=== PATIENT | male | born 1980 | race Caucasian/White ===

== ENCOUNTER 2019-06-22 13:57 | Emergency (ER) | payer BC, SELFPAY ==
[2019-06-22] MEDS ORDERED: FENTANYL CITR 100 MCG/2 ML ONE (14:38)
--- NOTE | 2019-06-22 15:02 | RAD REPORT ---
EXAM DESCRIPTION: US - Scrotum Testicles - 06/22/2019 2:44 pm CLINICAL HISTORY: left testicle pain COMPARISON: No comparisons FINDINGS: The right testicle 4.7 x 3.3 x 2.6 cm. No intratesticular masses or evidence of testicular torsion. The left testicle 5.0 x 3.4 x 3.0 cm. No intratesticular masses or evidence of testicular torsion. Left epididymis is enlarged with increased blood flow. Mild left scrotal fluid. IMPRESSION: Left epididymitis.
--- NOTE | 2019-06-22 15:46 | EDPHYS ---
Physician Documentation [facility] Name: Venkata Simms Age: 38 yrs Sex: Male : 1980 Arrival Date: 06/22/2019 Time: 13:58 Bed 19 Private MD: ED Physician Curtis Delacruz HPI: 06/21 14:29 This 38 yrs old Male presents to ER via Ambulatory with complaints of snw Testicular Swelling. 14:29 The patient presents with tenderness, that is severe, left testicular pain. Onset: The snw symptoms/episode began/occurred suddenly, 3 day(s) ago, and became persistent. Associated signs and symptoms: The patient has no apparent associated signs or symptoms. Severity of symptoms: At their worst the symptoms were severe. The patient has not experienced similar symptoms in the past. The patient has not recently seen a physician. denies heavy lifting, denies unprotected intercourse. Historical: - Allergies: 14:08 No Known Allergies; ca1 - Home Meds: 14:08 None [Active]; ca1 - PMHx: 14:08 None; ca1 - PSHx: 14:08 None; ca1 - Immunization history:: Adult Immunizations up to date. - Social history:: Smoking status: Patient reports the use of cigarette tobacco products, smokes one pack cigarettes per day. ROS: 14:27 Constitutional: Negative for fever, chills, and weight loss, Eyes: Negative for injury, snw pain, redness, and discharge, ENT: Negative for injury, pain, and discharge, Neck: Negative for injury, pain, and swelling, Cardiovascular: Negative for chest pain, palpitations, and edema, Respiratory: Negative for shortness of breath, cough, wheezing, and pleuritic chest pain, Abdomen/GI: Negative for abdominal pain, nausea, vomiting, diarrhea, and constipation, Back: Negative for injury and pain, MS/Extremity: Negative for injury and deformity, Skin: Negative for injury, rash, and discoloration, Neuro: Negative for headache, weakness, numbness, tingling, and seizure. 14:27 : Positive for testicular pain Exam: 14:27 Constitutional: This is a well developed, well nourished patient who is awake, alert, snw and in no acute distress. Head/Face: Normocephalic, atraumatic. Eyes: Pupils equal round and reactive to light, extra-ocular motions intact. Lids and lashes normal. Conjunctiva and sclera are non-icteric and not injected. Cornea within normal limits. Periorbital areas with no swelling, redness, or edema. ENT: Nares patent. No nasal discharge, no septal abnormalities noted. Tympanic membranes are normal and external auditory canals are clear. Oropharynx with no redness, swelling, or masses, exudates, or evidence of obstruction, uvula midline. Mucous membranes moist. Neck: Trachea midline, no thyromegaly or masses palpated, and no cervical lymphadenopathy. Supple, full range of motion without nuchal rigidity, or vertebral point tenderness. No Meningismus. Chest/axilla: Normal chest wall appearance and motion. Nontender with no deformity. No lesions are appreciated. Cardiovascular: Regular rate and rhythm with a normal S1 and S2. No gallops, murmurs, or rubs. Normal PMI, no JVD. No pulse deficits. Respiratory: Lungs have equal breath sounds bilaterally, clear to auscultation and percussion. No rales, rhonchi or wheezes noted. No increased work of breathing, no retractions or nasal flaring. Abdomen/GI: Soft, non-tender, with normal bowel sounds. No distension or tympany. No guarding or rebound. No evidence of tenderness throughout. Back: No spinal tenderness. No costovertebral tenderness. Full range of motion. Skin: Warm, dry with normal turgor. Normal color with no rashes, no lesions, and no evidence of cellulitis. MS/ Extremity: Pulses equal, no cyanosis. Neurovascular intact. Full, normal range of motion. Neuro: Awake and alert, GCS 15, oriented to person, place, time, and situation. Cranial nerves II-XII grossly intact. Motor strength 5/5 in all extremities. Sensory grossly intact. Cerebellar exam normal. Normal gait. Psych: Awake, alert, with orientation to person, place and time. Behavior, mood, and affect are within normal limits. 14:27 : Male external genitalia: normal, Bladder: is normal, Sexual behavior: denies unprotected intercourse, left testicle exquisitely tender. Vital Signs: 14:06 BP 133 / 94; Pulse 88; Resp 17 S; Temp 98.1(O); Pulse Ox 96% on R/A; Weight 70.31 kg ca1 (R); Height 6 ft. 3 in. (190.50 cm); Pain 10/10; 15:21 BP 135 / 87; Pulse 88; Resp 16; Pulse Ox 96% ; bp 16:33 BP 140 / 96; Pulse 88; Resp 17; Pulse Ox 97% ; bp 14:06 Body Mass Index 19.37 (70.31 kg, 190.50 cm) ca1 MDM: 14:27 Patient medically screened. snw 15:46 Data reviewed: vital signs, nurses notes, radiologic studies, ultrasound. Data snw interpreted: Pulse oximetry: on room air is 96 %. Interpretation: acceptable. Counseling: I had a detailed discussion with the patient and/or guardian regarding: the historical points, exam findings, and any diagnostic results supporting the discharge/admit diagnosis, the presence of at least one elevated blood pressure reading (>120/80) during this emergency department visit, radiology results, the need for outpatient follow up, to return to the emergency department if symptoms worsen or persist or if there are any questions or concerns that arise at home. Special discussion: Based on the history and exam findings, there is no indication for further emergent testing or inpatient evaluation. I discussed with the patient/guardian the need to see the primary care provider for further evaluation of the symptoms. 06/21 14:27 Order name: US Scrotum Testicles; Complete Time: 15:23 snw Administered Medications: 14:45 Drug: fentaNYL (PF) 50 mcg Route: IM; Site: right deltoid; bp 15:22 Follow up: Response: Pain is decreased bp 15:45 Drug: Cipro 500 mg Route: PO; bp 16:24 Follow up: Response: No adverse reaction bp Disposition: 18:25 Co-signature as Attending Physician, Curtis Delacruz MD. rn Disposition: 06/22/19 15:45 Discharged to Home. Impression: Epididymitis. - Condition is Stable. - Discharge Instructions: Epididymitis. - Prescriptions for Cipro 500 mg Oral Tablet - take 1 tablet by ORAL route every 12 hours for 10 days; 20 tablet. - Medication Reconciliation Form, Thank You Letter, Antibiotic Education, Prescription Opioid Use form. - Follow up: Emergency Department; When: As needed; Reason: Worsening of condition. Follow up: Private Physician; When: 2 - 3 days; Reason: Recheck today's complaints, Continuance of care, Re-evaluation by your physician. - Problem is new. - Symptoms are unchanged. - Notes: Wear snug fitting underwear to keep scrotum lifted Signatures: Dispatcher [employer] EDMS Dominique Pittman, ARON-C MEDICAL OFFICE TECHNOLOGIST-Csnw Curtis Delacruz MD MD rn Peltier, Brian, RN RN bp Acob, Cyndee RN RN ca1 Corrections: (The following items were deleted from the chart) 16:39 15:45 06/22/2019 15:45 Discharged to Home. Impression: Epididymitis. Condition is bp Stable. Forms are Medication Reconciliation Form, Thank You Letter, Antibiotic Education, Prescription Opioid Use. Follow up: Emergency Department; When: As needed; Reason: Worsening of condition. Follow up: Private Physician; When: 2 - 3 days; Reason: Recheck today's complaints, Continuance of care, Re-evaluation by your physician. Problem is new. Symptoms are unchanged. snw
--- NOTE | 2019-06-22 15:46 | ER ---
Nurse's Notes [facility] Name: Venkata Simms Age: 38 yrs Sex: Male : 1980 Arrival Date: 06/22/2019 Time: 13:58 Bed 19 Private MD: Diagnosis: Epididymitis Presentation: 06/21 14:06 Chief complaint: Patient states: Swelling in the L testicle x 4 days. Reports pain on ca1 the L scrotum. Coronavirus screen: Proceed with normal triage. Patient denies a cough. Patient denies shortness of breath or difficulty breathing. Patient denies measured and/or subjective temperature greater than 100.4F prior to today's visit. Patient denies travel on a cruise ship or to a country the [facility] currently lists as an affected area. Patient denies contact with known and/or suspected case of COVID-19. Ebola Screen: Patient negative for fever greater than or equal to 101.5 degrees Fahrenheit, and additional compatible Ebola Virus Disease symptoms Patient denies exposure to infectious person. Patient denies travel to an Ebola-affected area in the 21 days before illness onset. No symptoms or risks identified at this time. Initial Sepsis Screen: Does the patient meet any 2 criteria? No. Patient's initial sepsis screen is negative. Does the patient have a suspected source of infection? No. Patient's initial sepsis screen is negative. Risk Assessment: Do you want to hurt yourself or someone else? Patient reports no desire to harm self or others. Onset of symptoms was June 22, 2019. 14:06 Method Of Arrival: Ambulatory ca1 14:06 Acuity: LEILANI 3 ca1 Triage Assessment: 14:10 General: Appears in no apparent distress. comfortable, Behavior is cooperative, bp appropriate for age, anxious. Pain: Complains of pain in groin. EENT: No deficits noted. Neuro: No deficits noted. Cardiovascular: No deficits noted. Respiratory: No deficits noted. GI: No signs and/or symptoms were reported involving the gastrointestinal system. : Reports LEFT TESTICULAR PAIN/SWELLING. Derm: No deficits noted. Musculoskeletal: No deficits noted. Historical: - Allergies: 14:08 No Known Allergies; ca1 - Home Meds: 14:08 None [Active]; ca1 - PMHx: 14:08 None; ca1 - PSHx: 14:08 None; ca1 - Immunization history:: Adult Immunizations up to date. - Social history:: Smoking status: Patient reports the use of cigarette tobacco products, smokes one pack cigarettes per day. Screenin:10 Abuse screen: Denies threats or abuse. Denies injuries from another. Nutritional bp screening: No deficits noted. Tuberculosis screening: No symptoms or risk factors identified. Fall Risk None identified. Assessment: 14:10 General: SEE TRIAGE NOTE. bp 14:48 Reassessment: PT RETURNED FROM U/S. bp 15:21 Reassessment: U/S RESULTED. DISPO PENDING. NO S/S ACUTE DISTRESS. bp 16:38 Reassessment: PT D/C HOME AMBULATORY, DX WITH EPIDIDYMITIS. bp Vital Signs: 14:06 BP 133 / 94; Pulse 88; Resp 17 S; Temp 98.1(O); Pulse Ox 96% on R/A; Weight 70.31 kg ca1 (R); Height 6 ft. 3 in. (190.50 cm); Pain 10/10; 15:21 BP 135 / 87; Pulse 88; Resp 16; Pulse Ox 96% ; bp 16:33 BP 140 / 96; Pulse 88; Resp 17; Pulse Ox 97% ; bp 14:06 Body Mass Index 19.37 (70.31 kg, 190.50 cm) ca1 ED Course: 13:58 Patient arrived in ED. ag5 14:07 Triage completed. ca1 14:08 Fausto Rojas, RN is Primary Nurse. bp 14:08 Arm band placed on right wrist. ca1 14:10 Patient has correct armband on for positive identification. Bed in low position. Call bp light in reach. Side rails up X2. 14:17 Dominique Pittman FNP-C is PHCP. snw 14:17 Curtis Delacruz MD is Attending Physician. snw 14:46 US Scrotum Testicles In Process Unspecified. EDMS 14:51 Ultrasound completed. hr 16:38 No provider procedures requiring assistance completed. Patient did not have IV access bp during this emergency room visit. Administered Medications: 14:45 Drug: fentaNYL (PF) 50 mcg Route: IM; Site: right deltoid; bp 15:22 Follow up: Response: Pain is decreased bp 15:45 Drug: Cipro 500 mg Route: PO; bp 16:24 Follow up: Response: No adverse reaction bp Outcome: 15:45 Discharge ordered by . carlos 16:38 Discharged to home ambulatory. bp 16:38 Condition: stable 16:38 Discharge instructions given to patient, Instructed on discharge instructions, follow up and referral plans. medication usage, Demonstrated understanding of instructions, follow-up care, medications, Prescriptions given X 1. 16:39 Patient left the ED. bp Signatures: Dispatcher [employer] EDMS Dominique Pittman, BRANCH SERVICE SPECIALIST-C BRANCH SERVICE SPECIALIST-Csnw Maida Bauer Brian, RN RN bp Cyndee Suazo RN RN [facility] Ciara, marisel ag5
[2019-06-22] MEDS ORDERED: CIPROFLOXACIN HCL 500 MG TAB ONE (16:26)
[2019-06-22 16:50] VITALS: TEMP 98.1
[2019-06-22 16:53] VITALS: BP 140/96; O2SAT 97
== END 2019-06-22 16:39 | disposition home or self-care (01) ==
LOC: ER 13:57
DX: N45.1 Epididymitis (principal); F17.210 Nicotine dependence, cigarettes, uncomplicated
CPT/HCPCS: 76870; 96372; 99283; J3010

== ENCOUNTER 2021-02-25 10:27 | Inpatient (IN) | payer SELFPAY ==
[2021-02-25] MEDS ORDERED: NA CHLORIDE 0.9% 0 ML ONE (11:28)
[2021-02-25] MEDS ORDERED: ONDANSETRON 4 MG/2 ML VIAL ONE ×3 (11:28→22:23)
[2021-02-25] MEDS ORDERED: MORPHINE 4 MG/ML SYR ONE ×2 (11:28→11:49)
[2021-02-25] MEDS ORDERED: NA CHLORIDE 0.9% 1,000 ML ONE ×2 (11:49→20:10)
[2021-02-25 11:50] LABS: Absolute Lymphocytes (CBC) 1.1 K/uL (0.7-4.9); Lymphocytes % 5.2 % (15.3-44.8); MPV 7.1 fL (7.6-11.3); RBC Red Blood Cell Count 4.52 M/uL (4.33-5.43)
[2021-02-25] MEDS ORDERED: VANCOMYCIN 1 GM/VIAL ONE (11:58)
[2021-02-25] MEDS ORDERED: CEFEPIME 1 GM/VIAL ONE (11:58)
[2021-02-25] MEDS ORDERED: NA CHLORIDE 0.9% 250 ML ONE (11:58)
[2021-02-25 12:05] LABS: Albumin 2.6 g/dL (3.4-5.0); Bilirubin Total 0.4 mg/dL (0.2-1.0); Potassium 3.5 mmol/L (3.5-5.1); Protein, Total 8.7 g/dL (6.4-8.2)
[2021-02-25 12:20] LABS: Blood Morphology Comment NOT SEEN (NOT SEEN); Platelet Estimate ADEQ; Platelets, Giant PRESENT; Toxic Granulation 1+
--- NOTE | 2021-02-25 12:40 | RAD REPORT ---
EXAM DESCRIPTION: US - Scrotum Testicles - 02/25/2021 11:53 am CLINICAL HISTORY: Swelling;Pain, history of prior testicular infection COMPARISON: Scrotum Testicles dated 06/22/2019 FINDINGS: No intratesticular mass lesions are identifiable. Right testicle measures larger than the left. Doppler evaluation shows normal, symmetric intratesticular blood flow pattern. Right epididymis is enlarged and heterogeneous with increased vascularity when compared to the left. Small right side hydrocele is present and there are strands present within the fluid. This is possibly the sequela of the prior infection. No varicocele identified. No hernia identifiable. IMPRESSION: Right epididymitis pattern. Small right hydrocele with stranding within the fluid. This could be the sequela of a prior infection . Right testicle is larger than the left but is not hyperemic and does not contain a focal mass lesion. No sonographic findings for orchitis.
--- NOTE | 2021-02-25 13:19 | ER ---
Nurse's Notes [facility] Name: Venkata Simms Age: 40 yrs Sex: Male : 1980 Arrival Date: 02/25/2021 Time: 10:31 Bed 8 Private MD: Diagnosis: Epididymitis Presentation: 02/25 10:56 Chief complaint: Patient states: swollen right testicle X 1 week , was seen at [facility] and put on abx and pain pills, pain and swelling has gotten worse. Coronavirus screen: At this time, the client does not indicate any symptoms associated with coronavirus-19. Ebola Screen: Patient negative for fever greater than or equal to 101.5 degrees Fahrenheit, and additional compatible Ebola Virus Disease symptoms Patient denies exposure to infectious person. Patient denies travel to an Ebola-affected area in the 21 days before illness onset. No symptoms or risks identified at this time. Initial Sepsis Screen: Does the patient meet any 2 criteria? No. Patient's initial sepsis screen is negative. Does the patient have a suspected source of infection? No. Patient's initial sepsis screen is negative. Risk Assessment: Do you want to hurt yourself or someone else? Patient reports no desire to harm self or others. Onset of symptoms was February 18, 2021. 10:56 Method Of Arrival: Ambulatory 10:56 Acuity: LEILANI 3 iw Triage Assessment: 13:02 General: Appears in no apparent distress. Behavior is calm, cooperative. Pain: blackwood Complains of pain in groin. Historical: - Allergies: 10:57 No Known Allergies; iw - Home Meds: 10:57 None [Active]; iw - PMHx: 10:57 None; iw - PSHx: 10:57 right hand; iw - Immunization history:: Client reports having NOT received the Covid vaccine. - Social history:: Smoking status: Patient reports the use of cigarette tobacco products, smokes one pack cigarettes per day. Screenin:02 Abuse screen: Denies threats or abuse. Denies injuries from another. Nutritional blackwood screening: No deficits noted. Tuberculosis screening: No symptoms or risk factors identified. Fall Risk None identified. Assessment: 11:30 General: Appears uncomfortable, Behavior is calm, cooperative, appropriate for age. ww Pain: Complains of pain in groin. Neuro: Level of Consciousness is awake, alert, obeys commands, Oriented to person, place, time, situation, Appropriate for age Moves all extremities. Cardiovascular: Denies chest pain, shortness of breath, Capillary refill < 3 seconds. Respiratory: Airway is patent Respiratory effort is even, unlabored, Respiratory pattern is regular, symmetrical. GI: Abdomen is tender to palpation in suprapubic area. EENT: No deficits noted. No signs and/or symptoms were reported regarding the EENT system. Derm: Reports pain that is 10 out of 10 on a pain scale. swelling to testicles. Musculoskeletal: No deficits noted. No signs and/or symptoms reported regarding the musculoskeletal system. 12:45 Reassessment: Patient appears in no apparent distress at this time. No changes from ww previously documented assessment. Patient and/or family updated on plan of care and expected duration. Pain level reassessed. Patient is alert, oriented x 3, equal unlabored respirations, skin warm/dry/pink. 14:00 Reassessment: Patient appears in no apparent distress at this time. No changes from ww previously documented assessment. Patient and/or family updated on plan of care and expected duration. Pain level reassessed. Patient is alert, oriented x 3, equal unlabored respirations, skin warm/dry/pink. 15:34 Reassessment: Patient appears in no apparent distress at this time. No changes from ww previously documented assessment. Patient and/or family updated on plan of care and expected duration. Pain level reassessed. Patient is alert, oriented x 3, equal unlabored respirations, skin warm/dry/pink. 17:11 Reassessment: Patient appears in no apparent distress at this time. No changes from ww previously documented assessment. Patient and/or family updated on plan of care and expected duration. Pain level reassessed. Patient is alert, oriented x 3, equal unlabored respirations, skin warm/dry/pink. 18:20 Reassessment: Patient appears in no apparent distress at this time. No changes from ww previously documented assessment. Patient and/or family updated on plan of care and expected duration. Pain level reassessed. Patient is alert, oriented x 3, equal unlabored respirations, skin warm/dry/pink. Sitting in bed eating dinner. 02/26 00:06 General: The pt is sleeping and in NAD. . thien Vital Signs: 02/25 10:56 BP 127 / 82; Pulse 115; Resp 16; Temp 99.2; Pulse Ox 99% on R/A; Weight 72.57 kg; iw Height 6 ft. 2 in. (187.96 cm); 12:30 BP 122 / 80; Pulse 99; Resp 16; ww 13:01 BP 133 / 80; Pulse 95; Resp 18; Pulse Ox 98% on R/A; blackwood 14:00 BP 130 / 76; Pulse 98; Resp 16; ww 15:00 BP 125 / 76; Pulse 109; Resp 18; ww 16:00 BP 138 / 76; Pulse 105; Resp 18; Pulse Ox 98% on R/A; ww 17:13 BP 133 / 76; Pulse 99; Resp 16; ww 18:20 BP 129 / 86; Pulse 105; Resp 16; ww 01 00:10 BP 117 / 74; Pulse 78; Resp 12; Temp 99.0; Pulse Ox 98% on R/A; thien 02/25 10:56 Body Mass Index 20.54 (72.57 kg, 187.96 cm) iw ED Course: 02/25 10:31 Patient arrived in ED. mr 10:57 Triage completed. iw 11:08 Omar Mcintosh NP is PHCP. pm1 11:08 Pranav Wise MD is Attending Physician. pm1 11:40 Initial lab(s) drawn, by me, sent to lab. First set of blood cultures drawn. mh5 11:45 Blood Culture Adult (2) Sent. mh5 11:45 CBC with Diff Sent. mh5 11:46 CMP Sent. mh5 11:46 Inserted saline lock: 22 gauge in left forearm, using aseptic technique. Blood mh5 collected. Missed attempt(s): 22 gauge in left 11:47 Patient has correct armband on for positive identification. Placed in gown. Bed in low mh5 position. Call light in reach. Side rails up X 1. Adult w/ patient. Warm blanket given. Pulse ox on. NIBP on. 11:53 US Scrotum Testicles In Process Unspecified. EDMS 11:53 Inserted saline lock: 20 gauge in left antecubital area, using aseptic technique. ww 13:02 No provider procedures requiring assistance completed. blackwood 13:02 Arm band placed on. blackwood 13:19 Celio Baires MD is Hospitalizing Provider. pm1 19:57 Patient admitted, IV remains in place. lp1 02/26 00:06 Yaneli Casillas, RN is Primary Nurse. thien Administered Medications: 02/25 11:48 Drug: Zofran (Ondansetron) 4 mg Route: IVP; Site: left antecubital; ww 17:13 Follow up: Response: No adverse reaction ww 11:52 Drug: NS 0.9% 1000 ml Route: IV; Rate: 1000 ml; Site: left antecubital; ww 17:13 Follow up: Response: No adverse reaction; IV Status: Completed infusion ww 11:53 Drug: morphine 4 mg Route: IVP; Site: left antecubital; ww 17:13 Follow up: Response: No adverse reaction ww 12:30 Drug: Cefepime 2 grams Route: IVPB; Rate: 200 ml/hr; Infused Over: 30 mins; Site: left blackwood antecubital; 17:12 Follow up: Response: No adverse reaction; IV Status: Completed infusion ww 13:09 Not Given (Physician Discretion): vancoMYCIN 1 grams IVPB once over 2 hrs blackwood 14:38 Drug: Rocephin (cefTRIAXone) 1 grams Route: IM; Site: right gluteus; ww 17:12 Follow up: Response: No adverse reaction; No change in condition ww 14:38 Drug: LevaQUIN (levofloxacin) 500 mg Volume: 100 ml; Route: IVPB; Infused Over: 60 ww mins; Site: left antecubital; 17:12 Follow up: Response: No adverse reaction; No change in condition; IV Status: Completed ww infusion 14:39 Drug: AZITHromycin 1 grams Route: PO; ww 17:11 Follow up: Response: No adverse reaction ww Outcome: 13:19 Decision to Hospitalize by Provider. pm1 19:57 Admitted to ER Hold. Please see [facility] for further documentation. lp1 19:57 Condition: stable 19:57 Instructed on the need for admit. 02/26 16:18 Patient left the ED. eb Signatures: Dispatcher [employer] Aline Puente Irene, RN Brenda Mcqueen RN RN lp1 Omar Mcintosh, MEDICAL CODING MANAGER MEDICAL CODING MANAGER pm1 Tessa Caldwell Lianet Ibrahim Brenda, Fauzia Sanchez RN, RN RN ww Au-Stager, Deneen, RN RN blackwood
--- NOTE | 2021-02-25 13:19 | EDPHYS ---
Physician Documentation [facility] Name: Venkata Simms Age: 40 yrs Sex: Male : 1980 Arrival Date: 02/25/2021 Time: 10:31 Bed 8 Private MD: RAND Physician Pranav Wise HPI: 02/25 11:17 This 40 yrs old Male presents to ER via Ambulatory with complaints of Testicular pm1 Problem. 11:17 The patient presents with swelling, of the right testicle, tenderness, of the right pm1 testicle. Onset: The symptoms/episode began/occurred 1 week(s) ago. Modifying factors: The symptoms are alleviated by nothing. Associated signs and symptoms: Pertinent negatives: dysuria, fever. Severity of symptoms: in the emergency department the symptoms are actually worse. The patient has experienced similar episodes in the past, a few times. The patient has been recently seen by a physician: with similar presenting complaints, and apparently given a diagnosis of Epididymitis, lab tests were done, an ultrasound was done, was given a prescription for antibiotics, but the patient's symptoms have worsened. Patient was discharged home with clindamycin and Levaquin. Historical: - Allergies: 10:57 No Known Allergies; iw - Home Meds: 10:57 None [Active]; iw - PMHx: 10:57 None; iw - PSHx: 10:57 right hand; iw - Immunization history:: Client reports having NOT received the Covid vaccine. - Social history:: Smoking status: Patient reports the use of cigarette tobacco products, smokes one pack cigarettes per day. ROS: 11:17 Constitutional: Negative for fever, chills, and weight loss. pm1 11:17 Cardiovascular: Negative for chest pain, palpitations, and edema, Respiratory: Negative for shortness of breath, cough, wheezing, and pleuritic chest pain, Abdomen/GI: Negative for abdominal pain, nausea, vomiting, diarrhea, and constipation. 11:17 MS/Extremity: Negative for injury and deformity, Skin: Negative for injury, rash, and discoloration, Neuro: Negative for headache, weakness, numbness, tingling, and seizure. 11:17 : Positive for testicular pain of the right testicle, Negative for urinary symptoms. 11:17 All other systems are negative. Exam: 11:17 Constitutional: This is a well developed, well nourished patient who is awake, alert, pm1 and in no acute distress. Head/Face: Normocephalic, atraumatic. 11:17 Back: No spinal tenderness. No costovertebral tenderness. Full range of motion. 11:17 Skin: Warm, dry with normal turgor. Normal color with no rashes, no lesions, and no evidence of cellulitis. MS/ Extremity: Pulses equal, no cyanosis. Neurovascular intact. Full, normal range of motion. 11:17 Cardiovascular: Exam negative for acute changes, Rate: normal, Rhythm: regular, Pulses: no pulse deficits are appreciated. 11:17 Respiratory: Exam negative for acute changes, respiratory distress, shortness of breath. 11:17 Abdomen/GI: Exam negative for acute changes, Inspection: abdomen appears normal, Palpation: abdomen is soft and non-tender, in all quadrants. 11:17 : Male external genitalia: swelling, of the right side of scrotum is noted, tenderness, of the right side of scrotum is noted. 11:17 Neuro: Exam negative for acute changes, Orientation: is normal, Mentation: is normal, Motor: is normal, moves all fours. Vital Signs: 10:56 BP 127 / 82; Pulse 115; Resp 16; Temp 99.2; Pulse Ox 99% on R/A; Weight 72.57 kg; iw Height 6 ft. 2 in. (187.96 cm); 12:30 BP 122 / 80; Pulse 99; Resp 16; ww 13:01 BP 133 / 80; Pulse 95; Resp 18; Pulse Ox 98% on R/A; blackwood 14:00 BP 130 / 76; Pulse 98; Resp 16; ww 15:00 BP 125 / 76; Pulse 109; Resp 18; ww 16:00 BP 138 / 76; Pulse 105; Resp 18; Pulse Ox 98% on R/A; ww 17:13 BP 133 / 76; Pulse 99; Resp 16; ww 18:20 BP 129 / 86; Pulse 105; Resp 16; ww 02/26 00:10 BP 117 / 74; Pulse 78; Resp 12; Temp 99.0; Pulse Ox 98% on R/A; thien 02/25 10:56 Body Mass Index 20.54 (72.57 kg, 187.96 cm) iw MDM: 02/25 11:15 Patient medically screened. pm1 13:09 ED course: Seen by Dr. Wise and would like admission to the hospital and the pm1 following medications: continuation of levaquin IV, Rocephin IM and azithromycin PO. 13:18 Data reviewed: vital signs. Data interpreted: Pulse oximetry: on room air is 98 %. pm1 Interpretation: normal. Counseling: I had a detailed discussion with the patient and/or guardian regarding: the historical points, exam findings, and any diagnostic results supporting the discharge/admit diagnosis, lab results, radiology results, the need for further work-up and treatment in the hospital. 02/25 11:17 Order name: Urine Microscopic Only pm1 02/25 11:17 Order name: CBC with Diff; Complete Time: 12:45 pm1 02/25 11:17 Order name: CMP; Complete Time: 12:45 pm1 02/25 11:17 Order name: Blood Culture Adult (2) pm1 02/25 12:20 Order name: Manual Differential; Complete Time: 12:45 EDMS 02/25 14:20 Order name: SARS-COV-2 RT PCR (Document "Date of Onset" if Symptomatic); Complete Time: eb 16:29 02/25 14:52 Order name: Magnesium EDMS 02/25 14:52 Order name: NT PRO-BNP EDMS 02/25 14:52 Order name: Procalcitonin EDMS 02/25 14:52 Order name: Basic Metabolic Panel EDMS 02/25 14:52 Order name: Basic Metabolic Panel EDMS 02/25 14:52 Order name: CBC with Automated Diff EDMS 02/25 14:52 Order name: CBC with Automated Diff EDMS 02/25 18:20 Order name: Urine Dipstick-Ancillary; Complete Time: 18:26 EDMS 02/25 11:17 Order name: US Scrotum Testicles; Complete Time: 12:45 pm1 02/25 11:17 Order name: Urine Dipstick-Ancillary (obtain specimen); Complete Time: 18:19 pm1 02/25 11:17 Order name: IV Saline Lock; Complete Time: 11:52 pm1 02/25 14:52 Order name: Regular EDMS 02/26 05:39 Order name: NT PRO-BNP EDMS Administered Medications: 11:48 Drug: Zofran (Ondansetron) 4 mg Route: IVP; Site: left antecubital; ww 17:13 Follow up: Response: No adverse reaction ww 11:52 Drug: NS 0.9% 1000 ml Route: IV; Rate: 1000 ml; Site: left antecubital; ww 17:13 Follow up: Response: No adverse reaction; IV Status: Completed infusion ww 11:53 Drug: morphine 4 mg Route: IVP; Site: left antecubital; ww 17:13 Follow up: Response: No adverse reaction ww 12:30 Drug: Cefepime 2 grams Route: IVPB; Rate: 200 ml/hr; Infused Over: 30 mins; Site: left blackwood antecubital; 17:12 Follow up: Response: No adverse reaction; IV Status: Completed infusion ww 13:09 Not Given (Physician Discretion): vancoMYCIN 1 grams IVPB once over 2 hrs blackwood 14:38 Drug: Rocephin (cefTRIAXone) 1 grams Route: IM; Site: right gluteus; ww 17:12 Follow up: Response: No adverse reaction; No change in condition ww 14:38 Drug: LevaQUIN (levofloxacin) 500 mg Volume: 100 ml; Route: IVPB; Infused Over: 60 ww mins; Site: left antecubital; 17:12 Follow up: Response: No adverse reaction; No change in condition; IV Status: Completed ww infusion 14:39 Drug: AZITHromycin 1 grams Route: PO; ww 17:11 Follow up: Response: No adverse reaction ww Disposition: 02/27 10:21 Co-signature as Attending Physician, Pranav Wise MD I agree with the assessment and luis plan of care. Disposition Summary: 02/25/21 13:19 Hospitalization Ordered Hospitalization Status: Inpatient Admission pm1 Provider: Celio Baires pm1 Condition: Stable pm1 Problem: new pm1 Symptoms: have improved pm1 Bed/Room Type: Standard pm1 Location: [facility] ER HOLD(02/25/21 19:23) Room Assignment: ERHOLD-(02/25/21 19:23) Diagnosis - Epididymitis pm1 Forms: - Medication Reconciliation Form pm1 - SBAR form pm1 Signatures: Dispatcher [employer] EDSydnee Madrigal RN RN mw Anderson, Corey, MD MD cha Williams, Irene, RN RN iw Marinas, Patrick, [employer] pm1 Fauzia Arthur RN RN ww Au-Stager, Heather, RN RN blackwood Corrections: (The following items were deleted from the chart) 02/25 13:19 Telemetry/MedSurg (Inpatient) [facility] : 1
[2021-02-25] MEDS ORDERED: Levofloxacin500mg IV 500 MG/100 ML BAG IV ONE (13:45)
[2021-02-25] MEDS ORDERED: CEFTRIAXONE 1000 MG/VIAL ONE (13:45)
[2021-02-25] MEDS ORDERED: AZITHROMYCIN 250 MG TAB ONE (13:45)
[2021-02-25] MEDS ORDERED: ACETAMINOPHEN 500 MG TAB PO PRN (14:49)
[2021-02-25] MEDS ORDERED: MORPHINE 2 MG/ML SYR IV PRN (14:49)
[2021-02-25] MEDS ORDERED: ONDANSETRON 4 MG/2 ML VIAL IV PRN (14:49)
[2021-02-25] MEDS ORDERED: NA CHLORIDE 0.9% 1,000 ML IV SCH (15:00)
[2021-02-25] MEDS ORDERED: HYDROCORTISONE SUC 100 MG INJ IV ONE (15:49)
[2021-02-25] MEDS: PIPER TAZO 3.375 GM in NA CHLORIDE 0.9% 100 ML IV SCH (17:00)
[2021-02-25 18:19] LABS: Urine Blood Trace-intact (Negative); Urine Glucose Negative (Negative); Urine Protein Trace (Negative); Urine Specific Gravity >=1.030 (1.005-1.030)
[2021-02-25] MEDS ORDERED: NA CHLORIDE 0.9% 100 ML ONE (20:10)
[2021-02-25] MEDS ORDERED: HYDROCORTISONE SUC 100 MG INJ ONE (20:10)
[2021-02-25] MEDS ORDERED: PIPERACIL/TAZO 3.375 GM VIAL IV ONE (20:10)
[2021-02-25] MEDS ORDERED: MORPHINE 2 MG/ML SYR ONE (22:23)
[2021-02-26] MEDS: PIPER TAZO 3.375 GM in NA CHLORIDE 0.9% 100 ML IV SCH ×2 (01:00→08:27)
[2021-02-26 03:41] VITALS: BMI 20.5
[2021-02-26 05:18] LABS: Hematocrit 37.5 % (39.6-49.0); Lymphocytes % 4.9 % (15.3-44.8); MPV 7.3 fL (7.6-11.3); RBC Red Blood Cell Count 4.32 M/uL (4.33-5.43)
[2021-02-26 05:39] LABS: BUN Blood Urea Nitrogen 13 mg/dL (7-18); Bicarbonate 26 mmol/L (21-32); Glucose Level 112 mg/dL (74-106); NT PRO-BNP 63 pg/mL (<125); Potassium 3.9 mmol/L (3.5-5.1); Sodium Level 132 mmol/L (136-145)
[2021-02-26] MEDS ORDERED: INFLUENZA VACCINE (for 6+ mo) 0.5 ML DOSE IMVAC ONE (08:00)
[2021-02-26] MEDS ORDERED: NA CHLORIDE 0.9% 100 ML ONE (08:22)
[2021-02-26] MEDS ORDERED: Levofloxacin500mg IV 500 MG/100 ML BAG IV ONE (08:22)
[2021-02-26] MEDS ORDERED: PIPERACIL/TAZO 3.375 GM VIAL IV ONE (08:23)
[2021-02-26] MEDS ORDERED: Levofloxacin500mg IV 500 MG/100 ML BAG IV SCH (09:00)
[2021-02-26 12:05] VITALS: TEMP 97.6
[2021-02-26 16:11] VITALS: BP 116/67
[2021-02-26 16:27] VITALS: O2SAT 98
--- NOTE | 2021-02-26 23:55 | P.HP ---
Certification for Inpatient Patient admitted to: Inpatient With expected LOS: >2 Midnights Patient will require the following post-hospital care: None Practitioner: I am a practitioner with admitting privileges, knowledge of patient current condition, hospital course, and medical plan of care. Services: Services provided to patient in accordance with Admission requirements found in Title 42 Section 412.3 of the Code of Federal Regulations Patient History Date of Service: 02/25/21 Reason for admission: Acute epididymitis History of Present Illness: Patient is a 40-year-old gentleman who came to the hospital with tenderness in the testicles. Patient was found have epididymitis. Patient was on oral antibiotics but was worsening. So patient came into the emergency room for further evaluation. Patient is having a lot of tenderness. We started on IV antibiotics. Will be admitted for further evaluation. Ultrasound does not reveal an abscess. If no improvement will need to get Urology consultation. Allergies No Known Allergies Allergy (Verified 02/26/21 03:37) Home Medications: NK [No Home Meds] 02/26/21 - Past Medical/Surgical History Has patient received pneumonia vaccine in the past: No Diabetic: No -: History of epididymitis -: Hand surgery - Family History Father Family History: Reviewed- Non-Contributory - Social History Smoking Status: Current every day smoker Alcohol use: No CD- Drugs: No Caffeine use: Yes Place of Residence: Home Review of Systems 10-point ROS is otherwise unremarkable Physical Examination - Vital Signs Temperature: 97.6 F Blood Pressure: 116/67 Pulse: 94 Respirations: 18 Pulse Ox (%): 98 - Physical Exam General: Alert, In no apparent distress, Oriented x3 HEENT: Atraumatic, PERRLA, Mucous membr. moist/pink, EOMI, Sclerae nonicteric Neck: Supple, 2+ carotid pulse no bruit, No LAD, Without JVD or thyroid abnormality Respiratory: Clear to auscultation bilaterally, Normal air movement Cardiovascular: Regular rate/rhythm, Normal S1 S2, No murmurs Gastrointestinal: Normal bowel sounds, Soft and benign, Non-distended, No tenderness Musculoskeletal: No clubbing, No swelling, No tenderness Integumentary: No rashes Neurological: Normal gait, Normal speech, Normal strength at 5/5 x4 extr, Normal tone, Sensation intact, Cranial nerves 3-12 intact, Normal affect Lymphatics: No axilla or inguinal lymphadenopathy External genitalia: Tenderness - Studies Laboratory Data (last 24 hrs) 02/26/21 06:00: Magnesium Cancelled 02/26/21 04:43: Sodium 132 L, Potassium 3.9, BUN 13, Creatinine 0.80, Glucose 112 H 02/26/21 04:43: WBC 19.80 H, Hgb 12.6 L, Hct 37.5 L, Plt Count 187 Male Exam - Male Exam Scrotum: Tenderness Testicular exam: Hydrocele Assessment & Plan - Problems (Diagnosis) (1) Epididymitis Status: Acute - Plan 1. Continue with IV antibiotic 2. Pain control 3. Anti-inflammatory 4. GI and DVT prophylaxis Discharge Plan: Home Plan to discharge in: Greater than 2 days - Advance Directives Does patient have a Living Will: No Does patient have a Durable POA for Healthcare: No - Code Status/Comfort Care Code Status Assessed: Yes Code Status: Full Code Critical Care: No Time Spent Managing PTS Care (In Minutes): 45
--- NOTE | 2021-02-26 23:56 | P.DS ---
Discharge Date: 02/26/21 Disposition: AMA-LEFT AGAINST MEDICAL ADVIC Discharge Condition: FAIR Reason for Admission: Acute epididymitis - Problems (1) Epididymitis Status: Acute Brief History of Present Illness: Patient is a 40-year-old gentleman who came to the hospital with tenderness in the testicles. Patient was found have epididymitis. Patient was on oral antibiotics but was worsening. So patient came into the emergency room for further evaluation. Patient is having a lot of tenderness. We started on IV antibiotics. Will be admitted for further evaluation. Ultrasound does not reveal an abscess. If no improvement will need to get Urology consultation. Hospital Course: Patient decided to leave against medical advice Vital Signs/Physical Exam: Temp Pulse Resp BP Pulse Ox 97.6 F 94 H 18 116/67 98 02/26/21 23:55 02/26/21 23:55 02/26/21 23:55 02/26/21 23:55 02/26/21 23:55 General: Alert, In no apparent distress, Oriented x3 Laboratory Data at Discharge: WBC 19.80 K/uL (4.3-10.9) H 02/26/21 04:43 Hgb 12.6 g/dL (13.6-17.9) L 02/26/21 04:43 Hct 37.5 % (39.6-49.0) L 02/26/21 04:43 Plt Count 187 K/uL (152-406) 02/26/21 04:43 Sodium 132 mmol/L (136-145) L 02/26/21 04:43 Potassium 3.9 mmol/L (3.5-5.1) 02/26/21 04:43 BUN 13 mg/dL (7-18) 02/26/21 04:43 Creatinine 0.80 mg/dL (0.55-1.3) 02/26/21 04:43 Glucose 112 mg/dL (74-106) H 02/26/21 04:43 Magnesium Cancelled 02/26/21 06:00 Total Bilirubin 0.4 mg/dL (0.2-1.0) 02/25/21 11:40 AST 14 U/L (15-37) L 02/25/21 11:40 ALT 20 U/L (12-78) 02/25/21 11:40 Alkaline Phosphatase 68 U/L (45-117) 02/25/21 11:40 Home Medications: NK [No Home Meds] 02/26/21 Physician Discharge Instructions: Patient has left against medical advice. He will need to come back to the ER if his symptoms worsen Followup: NONE,NONE [Primary Care Provider] - Time spent managing pt's care (in minutes): 35
== END 2021-02-26 16:17 | disposition left against medical advice (07) | DRG 727 ==
LOC: ER 10:27 → ERHOLD 14:49 → OBSVTOIN 02-26 10:53
PROVIDERS: ADMIT Hospitalist; ATTEND Hospitalist
DX: N45.1 Epididymitis (principal); U07.1 COVID-19; F17.210 Nicotine dependence, cigarettes, uncomplicated; Z53.29 Procedure and treatment not carried out because of patient's decision for other reasons
CPT/HCPCS: 36415; 76870; 80048; 80053; 81003; 83880; 84145; 85025; 87040; 96361; 96365; 96366; 96372; 96375; 99285; G0378; J0692; J1720; J2270; J2405; J2543; J3370; J7030; J7050; U0003